=== PATIENT | male | born 1940 | race Caucasian/White ===

== ENCOUNTER → 2017-08-29 10:45 | Outpatient (CLI) | payer MEDICARE, SELFPAY ==
--- NOTE | 2017-08-29 | DI.US.S_ITS ---
PROCEDURE: US ABDOMEN COMPLETE INDICATIONS: ABDOMINAL PAIN TECHNIQUE: Real-time scanning was performed of the abdominal and retroperitoneal organs, with image documentation. COMPARISON: [facility], [place], PET NECK TO MID THIGH STD, 06/20/2016, 13:18. FINDINGS: Liver: The liver is normal in size and demonstrates an extensively heterogeneous appearance with multiple hypoechoic ovoid nodule is with a central area of intermediate signal. The largest measures 3 cm in diameter within the right hepatic lobe. Gallbladder: No gallbladder wall thickening, pericholecystic fluid, or cholelithiasis is evident. Biliary ducts: Intrahepatic bile ducts are non-dilated. Extrahepatic bile duct caliber measures 5 mm. Normal is 6-7 mm or less in diameter, or 10 mm or less post-cholecystectomy. Pancreas: Visualized portions of the pancreas are sonographically normal. Spleen: Spleen is absent. Kidneys: Kidneys are normal in size and echotexture. Right kidney measures 11.6 cm long; left kidney measures 11.6 cm long. No hydronephrosis or nephrolithiasis. No solid masses. Aorta: Visualized aorta is normal in caliber at less than 3 cm. Iliacs: Obscured by bowel gas. IVC: Patent. Miscellaneous: No free abdominal fluid. Multiple retroperitoneal lymph nodes are identified with the largest measuring up to 1.6 cm in short axis, adjacent to the upper abdomen. IMPRESSION: 1. Multiple hepatic lesions are suspicious for metastatic disease and were not apparent on the PET-CT dated 06/20/16. Please consider a dedicated CT or MRI of the abdomen and pelvis with intravenous contrast for further evaluation. 2. Enlarged upper retroperitoneal lymph nodes. 2. No cholelithiasis. Dictated by: Brett Hinson M.D. on 08/29/2017 at 10:40 Approved by: Brett Hinson M.D. on 08/29/2017 at 10:57
== END ==
PROVIDERS: PCP Family Medicine; Visit Provider Family Medicine
DX: R10.9 Unspecified abdominal pain (principal); R59.0 Localized enlarged lymph nodes
CPT/HCPCS: 76700

== ENCOUNTER → 2017-09-02 13:15 | Outpatient (CLI) | payer MEDICARE, SELFPAY ==
--- NOTE | 2017-09-02 | DI.CT.S_ITS ---
PROCEDURE: CT ABDOMEN PELVIS W CON INDICATIONS: ABDOMINAL PAIN TECHNIQUE: After the administration of oral and intravenous contrast, 5 mm thick sections acquired from the diaphragms to the symphysis. 5 mm thick coronal and sagittal reformats were performed. For radiation dose reduction, the following was used: automated exposure control, adjustment of mA and/or kV according to patient size. COMPARISON: [facility], , US ABDOMEN COMPLETE, 08/29/2017, 11:20. [facility], [place], PET NECK TO MID THIGH STD, 06/20/2016, 13:18. FINDINGS: Image quality: Excellent. ABDOMEN: Lung bases: Lung bases are clear. Heart size is normal. Solid organs: Liver is normal in size. Multiple linear low low density foci throughout the liver parenchyma are present, largest of which are in the lateral segment left hepatic lobe measuring 20 mm, and within the right hepatic lobe inferiorly measuring 30 mm.. Gallbladder dimensions a small amount of surrounding fluid. Biliary system is non-dilated. Pancreas enhances normally. Spleen is normal in size and enhancement. No adrenal nodules. Kidneys are normal in size and enhancement, without hydronephrosis. Peritoneum and bowel: Stomach, small bowel, and colon loops are normal in caliber and wall thickness. No free fluid or air. Nodes and vessels: New, 14 mm short axis gastrohepatic ligament adenopathy is present. New, 14 mm short axis portal caval lymph node is present. Aorta and inferior vena cava are normal in caliber. The superior mesenteric vein demonstrates inflow related artifact versus mural thrombus along its left/lateral aspect. Portal vein has a similar appearance with flow-related artifact versus moderate mural thrombus. Miscellaneous: No ventral hernias. PELVIS: Genitourinary: Bladder wall thickness is normal. Left scrotal varicocele is present. Miscellaneous: No inguinal hernias or adenopathy. Bones: No suspicious bony lesions. No vertebral body compression fractures. IMPRESSION: 1. New severe hepatic metastatic disease. 2. New metastatic gastrohepatic ligament and portacaval adenopathy. 3. 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 Abdominal Doppler examination may be helpful for further assessment. 4. Left hemiscrotal varicocele. 5. Findings discussed with Dr. Briscoe on 09.02.17 at 1537 hrs. Dictated by: Ana Rosa Robledo M.D. on 09/02/2017 at 15:31 Approved by: Ana Rosa Robledo M.D. on 09/02/2017 at 15:39
== END ==
PROVIDERS: PCP Family Medicine; Visit Provider Family Medicine
DX: R10.9 Unspecified abdominal pain (principal); K76.9 Liver disease, unspecified; R59.0 Localized enlarged lymph nodes
CPT/HCPCS: 74177; Q9967